=== PATIENT | female | born 1985 | race Caucasian/White ===

== ENCOUNTER 2024-09-26 00:23 | Emergency (ER) | payer OTHER ==
[~2024-09-26] VITALS: Ht 170.2 cm; Wt 72.7 kg
[2024-09-26 00:26] VITALS: TEMP 97.8
[2024-09-26] MEDS ORDERED: OXYC10TA48 PO (00:47)
[2024-09-26] MEDS ORDERED: THIA100T92 PO (00:47)
[2024-09-26] MEDS ORDERED: LEVE250T81 PO (00:47)
[2024-09-26] MEDS ORDERED: CHLO25CA5 PO (00:47)
[2024-09-26] MEDS: SODIUM CHLORIDE 0.9% 1,000 ML IV ONE (01:02)
[2024-09-26] MEDS: LevETIRAcetam 500 MG in DEXTROSE 5%-WATER 100 ML IV ONE (01:08)
[2024-09-26 01:16] LABS: ANION GAP 11 mmol/L (8-16); CALCIUM, TOTAL 8.5 mg/dL (8.8-10.5); CARBON DIOXIDE 28 mmol/L (22-29); CHLORIDE 97 mmol/L (98-107); CREATININE 0.75 mg/dL (0.60-1.30); GLOMERULAR FILTR. RATE CALC > 60 mL/min (>60); GLUCOSE,RANDOM 365 mg/dL (70-110); POTASSIUM 3.5 mmol/L (3.5-5.1); SODIUM SERUM 136 mmol/L (136-145); UREA NITROGEN, BLOOD 5 mg/dL (7-18)
[2024-09-26 01:19] LABS: BASOPHILS % (AUTO) 0.8 % (0.0-2.0); EOSINOPHILS % (AUTO) 0.7 % (1.0-6.0); HEMATOCRIT 37.2 % (36-46); HEMOGLOBIN 12.5 g/dL (12.0-16.0); LYMPHOCYTES # (AUTO) 1.9 K/uL (1.0-4.8); MEAN CORPUSCULAR HEMOGLOBIN 34.4 pg (26.0-34.0); MEAN CORPUSCULAR HGB CONC 33.6 G/dL (31.0-37.0); MEAN CORPUSCULAR VOLUME 102 fL (80-100); MONOCYTES # (AUTO) 0.3 K/uL (0.1-1.0); MONOCYTES % (AUTO) 5.1 % (2.0-9.0); NEUTROPHILS % (AUTO) 57.4 % (40.0-70.0); PLATELET COUNT (AUTO) 88 K/uL (150-450); RED BLOOD CELL COUNT(AUTO) 3.63 MIL/uL (4.00-5.20); RED CELL DISTRIBUTION WIDTH 15.4 % (11.5-14.5); WHITE BLOOD COUNT (AUTO) 5.3 K/uL (4.5-11.0)
[2024-09-26 01:24] LABS: RBC MORPHOLOGY COMMENT ABNORMAL RBC MORPH
[2024-09-26 01:27] LABS: ALANINE AMINOTRANSFERASE 47 U/L (12-78); ALBUMIN 2.8 g/dL (3.4-5.0); ALKALINE PHOSPHATASE 111 U/L (46-116); ASPARTATE AMINOTRANSFERASE 45 U/L (15-37); BILIRUBIN,TOTAL 0.5 mg/dL (0.1-1.0); HCG,QUANTITATIVE 1 mIU/mL (0-6); LIPASE 21 U/L (16-77); TOTAL PROTEIN, SERUM 6.1 g/dL (6.4-8.2)
[2024-09-26] MEDS: INSULIN REGULAR, HUMAN 100 UNITS/ML IVP ONE (01:59)
[2024-09-26] MEDS: MORPHINE SULFATE 2 MG/ML SYRINGE IVP ONE (02:00)
[2024-09-26 02:07] VITALS: BP 151/86; PULSE 93; RESP 18; O2SAT 100
== END 2024-09-26 04:41 | disposition home or self-care (01) ==
LOC: EMS 00:23
DX: G40.909 Epilepsy, unspecified, not intractable, without status epilepticus (principal); R10.12 Left upper quadrant pain; E11.9 Type 2 diabetes mellitus without complications
CPT/HCPCS: 99284; 96365; 96375; 80048; 80076; 82962; 83690; 84702; 85025; 36415; 74018; J0712; J1815; J2270; J7060; J7030